=== PATIENT | female | born 1995 | race Caucasian/White ===

== ENCOUNTER 2017-01-02 20:47 | Emergency (ER) | payer OTHER ==
[2017-01-02] MEDS ORDERED: ASPIRIN 81 MG CHEW TABLET As Ordered ONE (21:48)
[2017-01-02 22:15] LABS: BASO % 0.3 % (0.0-1.0); EOS # 0.2 K/mm3 (0.0-0.50); EOS % 1.6 % (0.0-3.0); LARGE UNSTAINED CELL # 0.1 K/mm3 (0.0-0.4); LARGE UNSTAINED CELL % 1.5 % (0.0-4.0); LYMPH % 21.8 % (24.0-44.0); MEAN CORPUSCULAR HEMOGLOBIN 28.7 pg (27.0-33.0); MEAN CORPUSCULAR HGB CONC 33.8 g/dl (32.0-36.5); MONO # 0.6 K/mm3 (0.0-0.8); MONO % 6.3 % (0.0-5.0); NEUTROPHILS # 6.4 K/mm3 (1.8-7.7); NEUTROPHILS % 68.7 % (36.0-66.0); PLATELET COUNT, AUTOMATED 176 k/mm3 (150-450); RED CELL DISTRIBUTION WIDTH 12.8 % (11.5-14.5); WHITE BLOOD COUNT 9.3 K/mm3 (4.0-10.0)
[2017-01-02 23:07] LABS: INR 1.08
[2017-01-02 23:27] LABS: ANION GAP 7 MEQ/L (8-16); BLOOD UREA NITROGEN 9 MG/DL (7-18); CALCIUM LEVEL 9.6 MG/DL (8.5-10.1); CARBON DIOXIDE LEVEL 28 MEQ/L (21-32); CHLORIDE LEVEL 107 MEQ/L (98-107); CREATININE FOR GFR 0.81 MG/DL (0.55-1.02); GLOMERULAR FILTRATION RATE > 60.0 (>60); GLUCOSE, FASTING 89 MG/DL (70-105); POTASSIUM SERUM 3.6 MEQ/L (3.5-5.1); SODIUM LEVEL 142 MEQ/L (136-145)
--- NOTE | 2017-01-02 23:46 | EDDOCDS ---
Physician Documentation [facility] Name: Minna Leigh Age: 21 yrs Sex: Female : 1995 Arrival Date: 01/02/2017 Time: 20:47 Bed I7 / Private MD: Adiel Saucedo W Disposition: 01/02/17 23:37 Discharged to Home/Self Care. Impression: Chest pain on breathing, Pleurisy. - Condition is Stable. - Discharge Instructions: Nonspecific Chest Pain, Pleurisy. - Prescriptions for Ibuprofen 600 mg Oral Tablet - take 1 tablet by ORAL route every 6 hours As needed take with food; 30 tablet. - Medication Reconciliation, Local Pharmacy Hours form. - Follow up: Adiel Saucedo; When: 2 - 3 days; Reason: Recheck today's complaints, Continuance of care. - Problem is new. - Symptoms are unchanged. Historical: - Allergies: no known allergies; - Home Meds: 1. none - PMHx: none; - PSHx: none; - Social history: Smoking status: Patient states was never smoker of tobacco. No barriers to communication noted, The patient speaks fluent Bahamian, Speaks appropriately for age. - Family history: Not pertinent. - : The pt / caregiver states he / she is not on anticoagulants. Home medication list is obtained from the patient. - Exposure Risk Screening:: None identified. 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 4 in. (162.56 cm) (R); Pain 7/10; 23:44 BP 128 / 67; Pulse 80; Resp 16; Temp 98.2; Pulse Ox 98% on R/A; Pain 4/10; ld5 20:49 Body Mass Index 23.17 (61.23 kg, 162.56 cm) gr2 MDM: 21:42 Aspirin Chewable Tablet 324 mg PO once ordered. ke 21:42 IV Saline Lock ordered. ke 21:42 Undress patient appropriately for examination ordered. ke 21:43 Basic Metabolic Profile Ordered. EDMS 21:43 CBC with Diff Ordered. EDMS 21:43 Cardiac Injury Profile Ordered. EDMS 21:43 D-Dimer Quant Ordered. EDMS 21:43 Prothrombin Time Profile\E\INR Ordered. EDMS 21:43 Troponin Ordered. EDMS 21:45 Chest, 2 View (pa\E\lat) Ordered. EDMS 21:45 ECG WITH READING ER PHYS+CARDIAG ordered. EDMS 22:45 Financial registration complete. gjjosee 23:06 [facility] Payment Agreement was scanned into [employer] and attached to record. gjjosee 23:33 Basic Metabolic Profile Reviewed. ke 23:33 CBC with Diff Reviewed. ke 23:33 Cardiac Injury Profile Reviewed. ke 23:33 D-Dimer Quant Reviewed. ke 23:33 Prothrombin Time Profile\E\INR Reviewed. ke 23:33 Troponin Reviewed. ke Administered Medications: 21:50 Drug: Aspirin 324 mg [aspirin 81 mg chewable tablet (4 tabs)] Route: PO; [facility] Signatures: Dispatcher [employer] EDVA Osman Riggs, NOTCH GRINDER NOTCH GRINDER Nirmala CastroRN RN ld5 Risa Skinner RN RN [facility] Trina George,ZACHARY RN [email or web address] Catina Kay The chart was reviewed and I authenticate all verbal orders and agree with the evaluation and treatment provided.Attachments: 23:06 [facility] Payment Agreement brianne MTDD
--- NOTE | 2017-01-02 23:46 | EDDOCDS ---
Nurse's Notes [facility] Name: Minna Leigh Age: 21 yrs Sex: Female : 1995 Arrival Date: 01/02/2017 Time: 20:47 Bed I7 / 29 Private MD: Adiel Saucedo W Diagnosis: Chest pain on breathing;Pleurisy Presentation: 01/02 20:51 Presenting complaint: Patient states: chest pain since noon today epigastric area kc3 radiating to back. Pt denies n/v and shortness of breath. Aspirin was not taken prior to arrival. Adult Sepsis Screening: The patient does not have new or worsening altered mentation. Patient's respiratory rate is less than 22. Systolic blood pressure is greater than 100. Patient has a qSOFA score of 0- Negative Sepsis Screen. Suicide/Homicide risk assessment- the patient denies having any suicidal and/or homicidal ideations and does not present with any other emotional, behavioral or mental health complaints. Status: [employer]. Transition of care: patient was not received from another setting of care. 20:51 Acuity: CIERRA Level 3 kc3 20:51 Method Of Arrival: Walkin/Carried/Asstd kc3 Triage Assessment: 20:53 General: Appears in no apparent distress, comfortable, Behavior is appropriate for age, kc3 cooperative. Pain: Location: chest Pain currently is 6 out of 10 on a pain scale. Pt Declines HIV testing. Cardiovascular: Chest pain is described as Pain is 6 out of 10 on a pain scale. radiates back episodes are intermittent began noon today is aggravated by breathing. Respiratory: Respiratory effort is even, unlabored, Denies shortness of breath. GI: Denies nausea, vomiting. Derm: Skin is pink, warm & dry. 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 none - PMHx: none; - PSHx: none; - Social history: Smoking status: Patient states was never smoker of tobacco. No barriers to communication noted, The patient speaks fluent Macedonian, Speaks appropriately for age. - Family history: Not pertinent. - : The pt / caregiver states he / she is not on anticoagulants. Home medication list is obtained from the patient. - Exposure Risk Screening:: None identified. Screenin:13 Screening information is obtained from the patient. Fall risk: No risks identified. [facility] Assistance ADL's: requires no assistance with activities of daily living. Abuse/DV Screen: The patient / caregiver reports he/she is: not in a situation that causes fear, pain or injury. Nutritional screening: No deficits noted. Advance Directives: There is no active DNR order. home support is adequate. Assessment: 21:56 General: Appears in no apparent distress, comfortable, Behavior is appropriate for age, cjh cooperative. Pain: Location: xyphoid area Pain currently is 6 out of 10 on a pain scale. Pain does not radiate. Aggravated by laying down. Neurological: Level of Consciousness is awake, alert, Oriented to person, place, time. Cardiovascular: Rhythm is sinus rhythm Chest pain is located in epigastric area. Respiratory: Airway is patent Respiratory effort is even, unlabored, Respiratory pattern is regular, symmetrical, Breath sounds are clear bilaterally. Derm: Skin is pink, warm & dry. 22:15 General: resting quietly on stretcher, awaiting lab results, states pain improves with [facility] sitting upright, friend at bedside, will continue to monitor. 23:44 General: Appears in no apparent distress, Behavior is cooperative, Pt sitting up in bed ld5 playing on phone. Friend at bedside. Respiratory: Airway is patent Respiratory effort is even, unlabored. GI: Denies nausea, vomiting. 23:44 Pain: Location: chest Pain currently is 4 out of 10 on a pain scale. ld5 Vital Signs: 20:49 BP 169 / 98; Pulse 93; Resp 18 S; Temp 98.3(O); Pulse Ox 100% on R/A; Weight 61.23 kg gr2 (R); Height 5 ft. 4 in. (162.56 cm) (R); Pain 7/10; 23:44 BP 128 / 67; Pulse 80; Resp 16; Temp 98.2; Pulse Ox 98% on R/A; Pain 4/10; ld5 20:49 Body Mass Index 23.17 (61.23 kg, 162.56 cm) gr2 Vitals: 20:49 Log In Time: January 02, 2017 at 20:49. gr2 ED Course: 20:48 Patient visited by Arielle Omalley. gr2 20:48 Patient moved to Waiting gr2 20:49 Adiel Saucedo is Private Physician. gr2 20:50 Patient visited by Arielle Omalley. gr2 20:50 Patient moved to Pre RCE gr2 20:52 Triage Initiated kc3 21:31 Patient moved to Triage 3 cln 21:34 [facility] Riggs FNP [facility]. ke 21:34 Patient visited by Osman Riggs FNP. ke 21:34 Patient visited by Osman Riggs FNP. ke 21:44 Patient moved to I cz 22:01 Patient visited by Zack Pickard PCA. kb5 22:01 EKG done. (by ED staff). Reviewed by Osman CASE. kb5 22:02 Basic Metabolic Profile Sent. rw1 22:02 CBC with Diff Sent. rw1 22:02 Cardiac Injury Profile Sent. rw1 22:02 D-Dimer Quant Sent. rw1 22:02 Prothrombin Time Profile\E\INR Sent. rw1 22:02 Troponin Sent. rw1 22:02 Inserted saline lock: 18 gauge in right antecubital area and blood collected. The rw1 patient tolerated the procedure well. 22:13 The patient / caregiver is instructed regarding the plan of care and ED course. Cardiac [facility] monitoring not applicable on this patient. 22:13 No procedures done that require assistance. [facility] 22:22 Patient visited by Osman Riggs FNP. ke 23:06 [facility] Payment Agreement was scanned into [employer] and attached to record. gjb 23:07 Patient visited by Zack Pickard PCA. kb5 23:36 Adiel Saucedo is Referral Physician. ke 23:44 Discontinued lock intact, bleeding controlled, pressure dressing applied, No ld5 redness/swelling at site. 23:45 Patient visited by Nirmala Chacko RN. ld5 Administered Medications: 21:50 Drug: Aspirin 324 mg [aspirin 81 mg chewable tablet (4 tabs)] Route: PO; [facility] Order Results: Lab Order: Basic Metabolic Profile; SPEC'M 01/02/17 22:48 Test: GLUCOSE, FASTING; Value: 89; Range: 70-105; Units: MG/DL; Status: F Test: BLOOD UREA NITROGEN; Value: 9; Range: 7-18; Units: MG/DL; Status: F Test: CREATININE FOR GFR; Value: 0.81; Range: 0.55-1.02; Units: MG/DL; Status: F Test: GLOMERULAR FILTRATION RATE; Value: > 60.0; Range: >60; Status: F Test: SODIUM LEVEL; Value: 142; Range: 136-145; Units: MEQ/L; Status: F Test: POTASSIUM SERUM; Value: 3.6; Range: 3.5-5.1; Units: MEQ/L; Status: F Test: CHLORIDE LEVEL; Value: 107; Range: 98-107; Units: MEQ/L; Status: F Test: CARBON DIOXIDE LEVEL; Value: 28; Range: 21-32; Units: MEQ/L; Status: F Test: ANION GAP; Value: 7; Range: 8-16; Abnormal: Below low normal; Units: MEQ/L; Status: F Test: CALCIUM LEVEL; Value: 9.6; Range: 8.5-10.1; Units: MG/DL; Status: F Test Note: ; Units are mL/min/1.73 m2 Chronic Kidney Disease Staging per NKF: Stage I & II GFR >=60 Normal to Mildly Decreased Stage III GFR 30-59 Moderately Decreased Stage IV GFR 15-29 Severely Decreased Stage V GFR <15 Very Little GFR Left ESRD GFR <15 on FIRE PREVENTION OFFICER Lab Order: CBC with Diff; SPEC'M 01/02/17 21:59 Test: WHITE BLOOD COUNT; Value: 9.3; Range: 4.0-10.0; Units: K/mm3; Status: F Test: RED BLOOD COUNT; Value: 4.85; Range: 4.00-5.40; Units: M/mm3; Status: F Test: HEMOGLOBIN; Value: 14.0; Range: 12.0-16.0; Units: g/dl; Status: F Test: HEMATOCRIT; Value: 41.2; Range: 36.0-47.0; Units: %; Status: F Test: MEAN CORPUSCULAR VOLUME; Value: 85.0; Range: 80.0-96.0; Units: fl; Status: F Test: MEAN CORPUSCULAR HEMOGLOBIN; Value: 28.7; Range: 27.0-33.0; Units: pg; Status: F Test: MEAN CORPUSCULAR HGB CONC; Value: 33.8; Range: 32.0-36.5; Units: g/dl; Status: F Test: RED CELL DISTRIBUTION WIDTH; Value: 12.8; Range: 11.5-14.5; Units: %; Status: F Test: PLATELET COUNT, AUTOMATED; Value: 176; Range: 150-450; Units: k/mm3; Status: F Test: NEUTROPHILS %; Value: 68.7; Range: 36.0-66.0; Abnormal: Above high normal; Units: %; Status: F Test: LYMPH %; Value: 21.8; Range: 24.0-44.0; Abnormal: Below low normal; Units: %; Status: F Test: MONO %; Value: 6.3; Range: 0.0-5.0; Abnormal: Above high normal; Units: %; Status: F Test: EOS %; Value: 1.6; Range: 0.0-3.0; Units: %; Status: F Test: BASO %; Value: 0.3; Range: 0.0-1.0; Units: %; Status: F Test: LARGE UNSTAINED CELL %; Value: 1.5; Range: 0.0-4.0; Units: %; Status: F Test: NEUTROPHILS #; Value: 6.4; Range: 1.8-7.7; Units: K/mm3; Status: F Test: LYMPH #; Value: 2.0; Range: 1.5-6.5; Units: K/mm3; Status: F Test: MONO #; Value: 0.6; Range: 0.0-0.8; Units: K/mm3; Status: F Test: EOS #; Value: 0.2; Range: 0.0-0.50; Units: K/mm3; Status: F Test: BASO #; Value: 0.0; Range: 0.0-0.2; Units: K/mm3; Status: F Test: LARGE UNSTAINED CELL #; Value: 0.1; Range: 0.0-0.4; Units: K/mm3; Status: F Lab Order: Cardiac Injury Profile; SPEC'M 01/02/17 22:48 Test: CPK CREATINE PHOSPHOKINASE; Value: 91; Range: 26-192; Units: U/L; Status: F Test: CK-MB VALUE MASS; Value: 2.0; Range: 0.0-3.6; Units: NG/ML; Status: F Test: MB/CK RELATIVE INDEX; Value: 2.19; Range: < OR =4; Status: F Test Note: ; DIAGNOSIS CRITERIA MMB ng/ml Relative Index (RI) NON-AMI < or = 5 N/A FLORES ZONE > 5 < or = 4 AMI > 5 > 4 Lab Order: D-Dimer Quant; [facility] 01/02/17 22:48 Test: D-DIMER QUANT; Value: 294.9; Range: <500; Units: ng/ml; Status: F Lab Order: Prothrombin Time Profile\E\INR; [facility]01/02/17 22:48 Test: PROTHROMBIN TIME; Value: 14.1; Range: 12.3-14.5; Units: SECONDS; Status: F Test: INR; Value: 1.08; Status: F Test Note: ; THERAPUTIC HUMAN INR VALUES INDICATIONS NORMAL RANGES PROPHYLAXIS/TREATMENT OF: VENOUS THROMBOSIS 2.0-3.0 PULMONARY EMBOLISM 2.0-3.0 PREVENTION OF SYSTEMIC EMBOLISM FROM: TISSUE HEART VALVES 2.0-3.0 ACUTE MYOCARDIAL INFARCTION 2.0-3.0 VALVULAR HEART DISEASE 2.0-3.0 ATRIAL FIBRILLATION 2.0-3.0 MECHANICAL VALVES(HIGH RISK) 2.5-3.5 RECURRENT MYOCARDIAL INFARCTION 2.5-3.5 Lab Order: Troponin; [facility] 01/02/17 22:48 Test: TROPONIN I; Value: < 0.02; Range: < 0.10; Units: NG/ML; Status: F Test Note: ; Troponin I Reference Interval for [employer] LOCI: 99th Percentile= 0.00-0.045 ng/ml Risk Stratification: <= 0.10 ng/ml Decreased Risk for Adverse Clinical Events. 0.10-1.50 ng/ml Increased Risk for Adverse Clinical Events. Evaluation of additional criterion and/or repeat testing in 2-6 hours is suggested to rule out myocardial damage. >= 1.50 ng/ml Indicative of Myocardial Injury. Outcome: 23:37 Discharge ordered by Provider. 23:44 Discharge Assessment: Patient awake, alert and oriented x 3. No cognitive and/or ld5 functional deficits noted. Patient verbalized understanding of disposition instructions. patient administered narcotics - no. The following High Risk Discharge criteria are identified: None. Discharged to home ambulatory, with friend. Condition: stable. Discharge instructions given to patient, friend, Instructed on discharge instructions, follow up and referral plans. medication usage, Demonstrated understanding of instructions, medications, Pt was receptive of discharge instructions/ teaching. Prescriptions given X 1. No special radiology studies were completed. Property :Personal belongings accompany Pt. 23:45 Patient left the ED. ld5 Signatures: Sameer Ta, RN RN cz Osman Riggs, PYTHON DJANGO DEVELOPER PYTHON DJANGO DEVELOPER Paulo Méndez LPN BOX MACHINE OPERATOR rw1 Zack Pickard, CASKET COVERER CASKET COVERER kb5 Nirmala ChackoRN RN ld5 Risa SkinnerRN RN [facility] Arielle Omalley 2 Trina George,RN RN kc3 Catina Kay Crystal, CASKET COVERER CASKET COVERER cln Corrections: (The following items were deleted from the chart) 22:14 21:56 Respiratory: Airway is patent Respiratory effort is even, unlabored, Respiratory cjh pattern is regular, symmetrical, cjh MTDD
--- NOTE | 2017-01-03 08:22 | REP ---
Clinical: Chest pain . Comparison: None . Technique: PA and lateral. Findings: The mediastinum and cardiac silhouette are normal. The lung garza are clear and without acute consolidation, effusion, or pneumothorax. The skeletal structures are intact and normal. Impression: 1. No acute cardiopulmonary process. Signed by Raphael Lakhani MD 01/03/2017 08:14 A
--- NOTE | 2017-01-03 19:36 | ECGEPIP ---
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
--- NOTE | 2017-01-05 00:46 | EDDOCDS ---
Physician Documentation [facility] Name: Minna Leigh Age: 21 yrs Sex: Female : 1995 Arrival Date: 01/02/2017 Time: 20:47 Bed I7 / Private MD: Adiel Saucedo W Disposition: 01/02/17 23:37 Discharged to Home/Self Care. Impression: Chest pain on breathing, Pleurisy. - Condition is Stable. - Discharge Instructions: Nonspecific Chest Pain, Pleurisy. - Prescriptions for Ibuprofen 600 mg Oral Tablet - take 1 tablet by ORAL route every 6 hours As needed take with food; 30 tablet. - Medication Reconciliation, Local Pharmacy Hours form. - Follow up: Adiel Saucedo; When: 2 - 3 days; Reason: Recheck today's complaints, Continuance of care. - Problem is new. - Symptoms are unchanged. Historical: - Allergies: no known allergies; - Home Meds: 1. none - PMHx: none; - PSHx: none; - Social history: Smoking status: Patient states was never smoker of tobacco. No barriers to communication noted, The patient speaks fluent Mozambican, Speaks appropriately for age. - Family history: Not pertinent. - : The pt / caregiver states he / she is not on anticoagulants. Home medication list is obtained from the patient. - Exposure Risk Screening:: None identified. 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 4 in. (162.56 cm) (R); Pain 7/10; 23:44 BP 128 / 67; Pulse 80; Resp 16; Temp 98.2; Pulse Ox 98% on R/A; Pain 4/10; ld5 20:49 Body Mass Index 23.17 (61.23 kg, 162.56 cm) gr2 MDM: 21:42 Aspirin Chewable Tablet 324 mg PO once ordered. ke 21:42 IV Saline Lock ordered. ke 21:42 Undress patient appropriately for examination ordered. ke 21:43 Basic Metabolic Profile Ordered. EDMS 21:43 CBC with Diff Ordered. EDMS 21:43 Cardiac Injury Profile Ordered. EDMS 21:43 D-Dimer Quant Ordered. EDMS 21:43 Prothrombin Time Profile\E\INR Ordered. EDMS 21:43 Troponin Ordered. EDMS 21:45 Chest, 2 View (pa\E\lat) Ordered. EDMS 21:45 ECG WITH READING ER PHYS+CARDIAG ordered. EDMS 22:45 Financial registration complete. gjb 23:06 [facility] Payment Agreement was scanned into [employer] and attached to record. gjb 23:33 Basic Metabolic Profile Reviewed. ke 23:33 CBC with Diff Reviewed. ke 23:33 Cardiac Injury Profile Reviewed. ke 23:33 D-Dimer Quant Reviewed. ke 23:33 Prothrombin Time Profile\E\INR Reviewed. ke 23:33 Troponin Reviewed. ke 01/03 10:44 T-Sheet-- Draft Copy was scanned into [employer] and attached to record. gb 10:44 ECG/EKG was scanned into [employer] and attached to record. gb Administered Medications: 01/02 21:50 Drug: Aspirin 324 mg [aspirin 81 mg chewable tablet (4 tabs)] Route: PO; [facility] Signatures: Dispatcher [employer] EDMS Pamela Ogden, Reg Reg gb Osman Riggs, RENAL SOCIAL WORKER RENAL SOCIAL WORKER Nirmala CasrtoRN RN ld5 Risa Skinner RN RN [facility] Trina George,ZACHARY RN kc3 Catina Kay The chart was reviewed and I authenticate all verbal orders and agree with the evaluation and treatment provided.Attachments: 23:06 [facility] Payment Agreement [facility] 01/03 10:44 T-Sheet-- Draft Copy gb 10:44 ECG/EKG gb Chart Complete MTDD
--- NOTE | 2017-01-05 00:46 | EDDOCDS ---
Nurse's Notes [facility] Name: Minna Leigh Age: 21 yrs Sex: Female : 1995 Arrival Date: 01/02/2017 Time: 20:47 Bed I7 / 29 Private MD: Adiel Saucedo W Diagnosis: Chest pain on breathing;Pleurisy Presentation: 01/02 20:51 Presenting complaint: Patient states: chest pain since noon today epigastric area kc3 radiating to back. Pt denies n/v and shortness of breath. Aspirin was not taken prior to arrival. Adult Sepsis Screening: The patient does not have new or worsening altered mentation. Patient's respiratory rate is less than 22. Systolic blood pressure is greater than 100. Patient has a qSOFA score of 0- Negative Sepsis Screen. Suicide/Homicide risk assessment- the patient denies having any suicidal and/or homicidal ideations and does not present with any other emotional, behavioral or mental health complaints. Status: [employer]. Transition of care: patient was not received from another setting of care. 20:51 Acuity: CIERRA Level 3 kc3 20:51 Method Of Arrival: Walkin/Carried/Asstd kc3 Triage Assessment: 20:53 General: Appears in no apparent distress, comfortable, Behavior is appropriate for age, kc3 cooperative. Pain: Location: chest Pain currently is 6 out of 10 on a pain scale. Pt Declines HIV testing. Cardiovascular: Chest pain is described as Pain is 6 out of 10 on a pain scale. radiates back episodes are intermittent began noon today is aggravated by breathing. Respiratory: Respiratory effort is even, unlabored, Denies shortness of breath. GI: Denies nausea, vomiting. Derm: Skin is pink, warm & dry. 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 none - PMHx: none; - PSHx: none; - Social history: Smoking status: Patient states was never smoker of tobacco. No barriers to communication noted, The patient speaks fluent Hebrew, Speaks appropriately for age. - Family history: Not pertinent. - : The pt / caregiver states he / she is not on anticoagulants. Home medication list is obtained from the patient. - Exposure Risk Screening:: None identified. Screenin:13 Screening information is obtained from the patient. Fall risk: No risks identified. [facility] Assistance ADL's: requires no assistance with activities of daily living. Abuse/DV Screen: The patient / caregiver reports he/she is: not in a situation that causes fear, pain or injury. Nutritional screening: No deficits noted. Advance Directives: There is no active DNR order. home support is adequate. Assessment: 21:56 General: Appears in no apparent distress, comfortable, Behavior is appropriate for age, cjh cooperative. Pain: Location: xyphoid area Pain currently is 6 out of 10 on a pain scale. Pain does not radiate. Aggravated by laying down. Neurological: Level of Consciousness is awake, alert, Oriented to person, place, time. Cardiovascular: Rhythm is sinus rhythm Chest pain is located in epigastric area. Respiratory: Airway is patent Respiratory effort is even, unlabored, Respiratory pattern is regular, symmetrical, Breath sounds are clear bilaterally. Derm: Skin is pink, warm & dry. 22:15 General: resting quietly on stretcher, awaiting lab results, states pain improves with [facility] sitting upright, friend at bedside, will continue to monitor. 23:44 General: Appears in no apparent distress, Behavior is cooperative, Pt sitting up in bed ld5 playing on phone. Friend at bedside. Respiratory: Airway is patent Respiratory effort is even, unlabored. GI: Denies nausea, vomiting. 23:44 Pain: Location: chest Pain currently is 4 out of 10 on a pain scale. ld5 Vital Signs: 20:49 BP 169 / 98; Pulse 93; Resp 18 S; Temp 98.3(O); Pulse Ox 100% on R/A; Weight 61.23 kg gr2 (R); Height 5 ft. 4 in. (162.56 cm) (R); Pain 7/10; 23:44 BP 128 / 67; Pulse 80; Resp 16; Temp 98.2; Pulse Ox 98% on R/A; Pain 4/10; ld5 20:49 Body Mass Index 23.17 (61.23 kg, 162.56 cm) gr2 Vitals: 20:49 Log In Time: January 02, 2017 at 20:49. gr2 ED Course: 20:48 Patient visited by Arielle Omalley. gr2 20:48 Patient moved to Waiting gr2 20:49 Adiel Saucedo is Private Physician. gr2 20:50 Patient visited by Arielle Omalley. gr2 20:50 Patient moved to Pre RCE gr2 20:52 Triage Initiated kc3 21:31 Patient moved to Triage 3 cln 21:34 [facility]man Riggs FNP [facility]. ke 21:34 Patient visited by Osman Riggs FNP. ke 21:34 Patient visited by Osman Riggs FNP. ke 21:44 Patient moved to I cz 22:01 Patient visited by Zack Pickard PCA. kb5 22:01 EKG done. (by ED staff). Reviewed by Osman CASE. kb5 22:02 Basic Metabolic Profile Sent. rw1 22:02 CBC with Diff Sent. rw1 22:02 Cardiac Injury Profile Sent. rw1 22:02 D-Dimer Quant Sent. rw1 22:02 Prothrombin Time Profile\E\INR Sent. rw1 22:02 Troponin Sent. rw1 22:02 Inserted saline lock: 18 gauge in right antecubital area and blood collected. The rw1 patient tolerated the procedure well. 22:13 The patient / caregiver is instructed regarding the plan of care and ED course. Cardiac [facility] monitoring not applicable on this patient. 22:13 No procedures done that require assistance. [facility] 22:22 Patient visited by Osman Riggs FNP. ke 23:06 [facility] Payment Agreement was scanned into [employer] and attached to record. gjb 23:07 Patient visited by Zack Pickard PCA. kb5 23:36 Adiel Saucedo is Referral Physician. ke 23:44 Discontinued lock intact, bleeding controlled, pressure dressing applied, No ld5 redness/swelling at site. 23:45 Patient visited by Nirmala Chacko RN. ld5 01/03 08:46 Chest, 2 View (pa\E\lat) Returned. EDMS 10:44 T-Sheet-- Draft Copy was scanned into [employer] and attached to record. gb 10:44 ECG/EKG was scanned into [employer] and attached to record. gb 20:06 EKG-ADULT Returned. EDMS Administered Medications: 01/02 21:50 Drug: Aspirin 324 mg [aspirin 81 mg chewable tablet (4 tabs)] Route: PO; [facility] Order Results: Lab Order: Basic Metabolic Profile; SPEC'M 01/02/17 22:48 Test: GLUCOSE, FASTING; Value: 89; Range: 70-105; Units: MG/DL; Status: F Test: BLOOD UREA NITROGEN; Value: 9; Range: 7-18; Units: MG/DL; Status: F Test: CREATININE FOR GFR; Value: 0.81; Range: 0.55-1.02; Units: MG/DL; Status: F Test: GLOMERULAR FILTRATION RATE; Value: > 60.0; Range: >60; Status: F Test: SODIUM LEVEL; Value: 142; Range: 136-145; Units: MEQ/L; Status: F Test: POTASSIUM SERUM; Value: 3.6; Range: 3.5-5.1; Units: MEQ/L; Status: F Test: CHLORIDE LEVEL; Value: 107; Range: 98-107; Units: MEQ/L; Status: F Test: CARBON DIOXIDE LEVEL; Value: 28; Range: 21-32; Units: MEQ/L; Status: F Test: ANION GAP; Value: 7; Range: 8-16; Abnormal: Below low normal; Units: MEQ/L; Status: F Test: CALCIUM LEVEL; Value: 9.6; Range: 8.5-10.1; Units: MG/DL; Status: F Test Note: ; Units are mL/min/1.73 m2 Chronic Kidney Disease Staging per NKF: Stage I & II GFR >=60 Normal to Mildly Decreased Stage III GFR 30-59 Moderately Decreased Stage IV GFR 15-29 Severely Decreased Stage V GFR <15 Very Little GFR Left ESRD GFR <15 on [employer] Lab Order: CBC with Diff; SPEC'01/02/17 21:59 Test: WHITE BLOOD COUNT; Value: 9.3; Range: 4.0-10.0; Units: K/mm3; Status: F Test: RED BLOOD COUNT; Value: 4.85; Range: 4.00-5.40; Units: M/mm3; Status: F Test: HEMOGLOBIN; Value: 14.0; Range: 12.0-16.0; Units: g/dl; Status: F Test: HEMATOCRIT; Value: 41.2; Range: 36.0-47.0; Units: %; Status: F Test: MEAN CORPUSCULAR VOLUME; Value: 85.0; Range: 80.0-96.0; Units: fl; Status: F Test: MEAN CORPUSCULAR HEMOGLOBIN; Value: 28.7; Range: 27.0-33.0; Units: pg; Status: F Test: MEAN CORPUSCULAR HGB CONC; Value: 33.8; Range: 32.0-36.5; Units: g/dl; Status: F Test: RED CELL DISTRIBUTION WIDTH; Value: 12.8; Range: 11.5-14.5; Units: %; Status: F Test: PLATELET COUNT, AUTOMATED; Value: 176; Range: 150-450; Units: k/mm3; Status: F Test: NEUTROPHILS %; Value: 68.7; Range: 36.0-66.0; Abnormal: Above high normal; Units: %; Status: F Test: LYMPH %; Value: 21.8; Range: 24.0-44.0; Abnormal: Below low normal; Units: %; Status: F Test: MONO %; Value: 6.3; Range: 0.0-5.0; Abnormal: Above high normal; Units: %; Status: F Test: EOS %; Value: 1.6; Range: 0.0-3.0; Units: %; Status: F Test: BASO %; Value: 0.3; Range: 0.0-1.0; Units: %; Status: F Test: LARGE UNSTAINED CELL %; Value: 1.5; Range: 0.0-4.0; Units: %; Status: F Test: NEUTROPHILS #; Value: 6.4; Range: 1.8-7.7; Units: K/mm3; Status: F Test: LYMPH #; Value: 2.0; Range: 1.5-6.5; Units: K/mm3; Status: F Test: MONO #; Value: 0.6; Range: 0.0-0.8; Units: K/mm3; Status: F Test: EOS #; Value: 0.2; Range: 0.0-0.50; Units: K/mm3; Status: F Test: BASO #; Value: 0.0; Range: 0.0-0.2; Units: K/mm3; Status: F Test: LARGE UNSTAINED CELL #; Value: 0.1; Range: 0.0-0.4; Units: K/mm3; Status: F Lab Order: Cardiac Injury Profile; [facility]01/02/17 22:48 Test: CPK CREATINE PHOSPHOKINASE; Value: 91; Range: 26-192; Units: U/L; Status: F Test: CK-MB VALUE MASS; Value: 2.0; Range: 0.0-3.6; Units: NG/ML; Status: F Test: MB/CK RELATIVE INDEX; Value: 2.19; Range: < OR =4; Status: F Test Note: ; DIAGNOSIS CRITERIA MMB ng/ml Relative Index (RI) NON-AMI < or = 5 N/A [place]ONE > 5 < or = 4 AMI > 5 > 4 Lab Order: D-Dimer Quant; 01/02/17 22:48 Test: D-DIMER QUANT; Value: 294.9; Range: <500; Units: ng/ml; Status: F Lab Order: Prothrombin Time Profile\E\INR; 01/02/17 22:48 Test: PROTHROMBIN TIME; Value: 14.1; Range: 12.3-14.5; Units: SECONDS; Status: F Test: INR; Value: 1.08; Status: F Test Note: ; THERAPUTIC HUMAN INR VALUES INDICATIONS NORMAL RANGES PROPHYLAXIS/TREATMENT OF: VENOUS THROMBOSIS 2.0-3.0 PULMONARY EMBOLISM 2.0-3.0 PREVENTION OF SYSTEMIC EMBOLISM FROM: TISSUE HEART VALVES 2.0-3.0 ACUTE MYOCARDIAL INFARCTION 2.0-3.0 VALVULAR HEART DISEASE 2.0-3.0 ATRIAL FIBRILLATION 2.0-3.0 MECHANICAL VALVES(HIGH RISK) 2.5-3.5 RECURRENT MYOCARDIAL INFARCTION 2.5-3.5 Lab Order: Troponin; 01/02/17 22:48 Test: TROPONIN I; Value: < 0.02; Range: < 0.10; Units: NG/ML; Status: F Test Note: ; Troponin I Reference Interval for [employer] LOCI: 99th Percentile= 0.00-0.045 ng/ml Risk Stratification: <= 0.10 ng/ml Decreased Risk for Adverse Clinical Events. 0.10-1.50 ng/ml Increased Risk for Adverse Clinical Events. Evaluation of additional criterion and/or repeat testing in 2-6 hours is suggested to rule out myocardial damage. >= 1.50 ng/ml Indicative of Myocardial Injury. Radiology Order: Chest, 2 View (pa\E\lat) Test: Chest, 2 View (pa\E\lat) REASON FOR EXAMINATION: Chest Pain; Clinical: Chest pain .; ; Comparison: None .; ; Technique: PA and lateral.; ; Findings:; The mediastinum and cardiac silhouette are normal. The lung garza are clear and; without acute consolidation, effusion, or pneumothorax. The skeletal structures; are intact and normal.; ; Impression:; 1. No acute cardiopulmonary process.; ; ; Signed by; Raphael Lakhani MD 01/03/2017 08:14 A; Radiology Order: EKG-ADULT Test: EKG-ADULT REASON FOR EXAMINATION: Chest Pain; Stationary ECG Study; [facility] - ED; ; Test Date: 2017-01-02; Pat Name: MINNA LEIGH Department:; Room: -; Gender: F Clinical Staff Rn: MARIAMA; : 1995 Requested By: OSMAN CASE; Order Number: [id number] Reading MD: Prisca Cerrato; Measurements; Intervals [place]; Rate: 89 P: -1; WV: 126 QRS: 69; QRSD: 85 T: 31; QT: 353; QTc: 429; Interpretive Statements; SINUS RHYTHM WITH SINUS ARRHYTHMIA; NO PRIOR FOR COMPARISON; Electronically Signed On 01-03-2017 19:36:06 EST by Prisca Cerrato; Outcome: 23:37 Discharge ordered by Provider. ke 23:44 Discharge Assessment: Patient awake, alert and oriented x 3. No cognitive and/or ld5 functional deficits noted. Patient verbalized understanding of disposition instructions. patient administered narcotics - no. The following High Risk Discharge criteria are identified: None. Discharged to home ambulatory, with friend. Condition: stable. Discharge instructions given to patient, friend, Instructed on discharge instructions, follow up and referral plans. medication usage, Demonstrated understanding of instructions, medications, Pt was receptive of discharge instructions/ teaching. Prescriptions given X 1. No special radiology studies were completed. Property :Personal belongings accompany Pt. 23:45 Patient left the ED. ld5 Signatures: Dispatcher [employer] EDDC Sameer Ta, RN RN cz Melvi, Pamela, Reg Reg gb Osman Riggs, VEGETABLE WASHER VEGETABLE WASHER ke Paulo Klein,LABORATORY CHEMICAL ASSISTANT LABORATORY CHEMICAL ASSISTANT rw1 Zack Pickard, TANK STAVE ASSEMBLER TANK STAVE ASSEMBLER kb5 Nirmala Chacko,ZACHARY RN ld5 Risa SkinnerRN RN cj Arielle Omalley gr2 Trina George RN RN kc3 Catina Kayb Gayla Ramos, TANK STAVE ASSEMBLER TANK STAVE ASSEMBLER cln Corrections: (The following items were deleted from the chart) 22:14 21:56 Respiratory: Airway is patent Respiratory effort is even, unlabored, Respiratory cjh pattern is regular, symmetrical, cjh Chart Complete MTDD
--- NOTE | 2017-01-05 00:46 | EDDOCDS ---
Physician Documentation [facility] Name: Minna Leigh Age: 21 yrs Sex: Female : 1995 Arrival Date: 01/02/2017 Time: 20:47 Bed I7 / Private MD: Adiel Saucedo W Disposition: 01/02/17 23:37 Discharged to Home/Self Care. Impression: Chest pain on breathing, Pleurisy. - Condition is Stable. - Discharge Instructions: Nonspecific Chest Pain, Pleurisy. - Prescriptions for Ibuprofen 600 mg Oral Tablet - take 1 tablet by ORAL route every 6 hours As needed take with food; 30 tablet. - Medication Reconciliation, Local Pharmacy Hours form. - Follow up: Adiel Saucedo; When: 2 - 3 days; Reason: Recheck today's complaints, Continuance of care. - Problem is new. - Symptoms are unchanged. Historical: - Allergies: no known allergies; - Home Meds: 1. none - PMHx: none; - PSHx: none; - Social history: Smoking status: Patient states was never smoker of tobacco. No barriers to communication noted, The patient speaks fluent [place], Speaks appropriately for age. - Family history: Not pertinent. - : The pt / caregiver states he / she is not on anticoagulants. Home medication list is obtained from the patient. - Exposure Risk Screening:: None identified. 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 4 in. (162.56 cm) (R); Pain 7/10; 23:44 BP 128 / 67; Pulse 80; Resp 16; Temp 98.2; Pulse Ox 98% on R/A; Pain 4/10; ld5 20:49 Body Mass Index 23.17 (61.23 kg, 162.56 cm) gr2 MDM: 21:42 Aspirin Chewable Tablet 324 mg PO once ordered. ke 21:42 IV Saline Lock ordered. ke 21:42 Undress patient appropriately for examination ordered. ke 21:43 Basic Metabolic Profile Ordered. EDMS 21:43 CBC with Diff Ordered. EDMS 21:43 Cardiac Injury Profile Ordered. EDMS 21:43 D-Dimer Quant Ordered. EDMS 21:43 Prothrombin Time Profile\E\INR Ordered. EDMS 21:43 Troponin Ordered. EDMS 21:45 Chest, 2 View (pa\E\lat) Ordered. EDMS 21:45 ECG WITH READING ER PHYS+CARDIAG ordered. EDMS 22:45 Financial registration complete. gjb 23:06 [facility] Payment Agreement was scanned into [employer] and attached to record. gjb 23:33 Basic Metabolic Profile Reviewed. ke 23:33 CBC with Diff Reviewed. ke 23:33 Cardiac Injury Profile Reviewed. ke 23:33 D-Dimer Quant Reviewed. ke 23:33 Prothrombin Time Profile\E\INR Reviewed. ke 23:33 Troponin Reviewed. ke 01/03 10:44 T-Sheet-- Draft Copy was scanned into [employer] and attached to record. gb 10:44 ECG/EKG was scanned into [employer] and attached to record. gb Administered Medications: 01/02 21:50 Drug: Aspirin 324 mg [aspirin 81 mg chewable tablet (4 tabs)] Route: PO; [facility] Signatures: Dispatcher [employer] EDMS Pamela Ogden, Reg Reg gb Osman Riggs, NEURO PSYCH SALES SPECIALIST NEURO PSYCH SALES SPECIALIST Nirmala CastroRN RN ld5 Risa Skinner RN RN [facility] Trina George,ZACHARY RN kc3 Catina Kay The chart was reviewed and I authenticate all verbal orders and agree with the evaluation and treatment provided.Attachments: 23:06 [facility] Payment Agreement banner 01/03 10:44 T-Sheet-- Draft Copy gb 10:44 ECG/EKG gb Chart Complete MTDD
== END 2017-01-02 23:45 | disposition home or self-care (01) ==
LOC: M ED 20:47
DX: R09.1 Pleurisy (principal)

== ENCOUNTER → 2017-07-08 | Outpatient (CLI) | payer OTHER ==
--- NOTE | 2017-07-09 07:14 | REP ---
REASON: Pain. PRIORS: None. FINDINGS: The joint spaces are symmetric and relatively well maintained. There is no evidence of acute fracture or destructive osseous lesion. IMPRESSION: Negative hand. Signed by Pierre Graham DO 07/09/2017 02:40 P
== END ==
LOC: M WUC 17:10
PROVIDERS: ATTEND Physician Assistant
DX: M79.641 Pain in right hand (principal)